=== PATIENT | female | born 1955 | race Caucasian/White ===

== ENCOUNTER 2021-04-18 04:19 | Emergency (ER) | payer BC ==
[2021-04-18 04:30] VITALS: TEMP 98.2
[2021-04-18] MEDS ORDERED: METOCLOPRAMIDE 5 MG/ML 2 ML VIAL IVP STA (05:09)
[2021-04-18] MEDS ORDERED: MORPHINE SULFATE 4 MG/ML SYRINGE IV STA (05:09)
[2021-04-18] MEDS ORDERED: LABETALOL 5 MG/ML VIAL MDV IVP STA (05:13)
--- NOTE | 2021-04-18 05:19 | XR ---
EXAMINATION TYPE: XR chest 2V DATE OF EXAM: 04/18/2021 COMPARISON: NONE HISTORY: Cough TECHNIQUE: 2 views FINDINGS: There is coarsening of the interstitial markings. Heart appears slightly enlarged. There is no heart failure. There are no hilar masses. Bony thorax is intact. IMPRESSION: Mild pulmonary interstitial pneumonia. No heart failure.
[2021-04-18 05:35] LABS: Anisocytosis Slight; Basophils # (A) 0.1 k/uL (0-0.2); Basophils % (A) 0 %; Eosinophils # (A) 0.7 k/uL (0-0.7); Eosinophils % (A) 5 %; HCT 44.2 % (34.0-46.0); HGB 14.6 gm/dL (11.4-16.0); Lymphocytes # (A) 2.7 k/uL (1.0-4.8); Lymphocytes % (A) 18 %; Mean Platelet Volume 6.8; Monocytes # (A) 0.6 k/uL (0-1.0); Monocytes % (A) 4 %; Neutrophils # (A) 10.4 k/uL (1.3-7.7); Neutrophils % (A) 71 %; Platelet Count 343 k/uL (150-450); RBC 4.86 m/uL (3.80-5.40); RDW 16.8 % (11.5-15.5); WBC 14.6 k/uL (3.8-10.6)
[2021-04-18 05:46] LABS: Calcium 8.7 mg/dL (8.4-10.2); Potassium 4.3 mmol/L (3.5-5.1)
--- NOTE | 2021-04-18 06:07 | ED ---
Headache HPI - General Mode of arrival: EMS - History of Present Illness MD Complaint: headache -: hour(s) Onset Description: gradual Location: frontal Severity: severe Quality: aching Consistency: constant Improves With: nothing Worsens With: light Context: occurred at rest Associated Symptoms: photophobia, sensitivity to sound Other Symptoms: cough, malaise Treatments Prior to Arrival: none <Antoine Fortune - Last Filed: 04/18/21 07:38> <Zay Landaverde - Last Filed: 04/18/21 07:57> - General Chief Complaint: Headache Stated Complaint: headache Time Seen by Provider: 04/18/21 04:33 - History of Present Illness Initial Comments: This patient is a 66-year-old woman who presents to be evaluated medically for headache. She states she has had a constellation symptoms dating back a few days. She has had congestion, sinus pressure, fever and chills, myalgias, and a little bit of cough. The patient developed worsening pain from about 1 this morning. The patient had been seen 3 days ago with cold and test that was negative. She was told she probably has viral syndrome. (Antoine Fortune) - Related Data Allergies Allergy/AdvReac Type Severity Reaction Status Date / Time Penicillins AdvReac Rash/Hives Verified 04/18/21 05:12 Review of Systems ROS Other: All systems not noted in ROS Statement are negative. Constitutional: Denies: fever, chills, weakness Eyes: Denies: eye pain, vision change ENT: Reports: congestion. Denies: ear pain Respiratory: Reports: cough. Denies: dyspnea, wheezes Cardiovascular: Denies: chest pain, syncope Gastrointestinal: Reports: nausea. Denies: abdominal pain, vomiting, diarrhea Musculoskeletal: Denies: back pain Skin: Denies: rash Neurological: Denies: headache, weakness, numbness <Antoine Fortune - Last Filed: 04/18/21 07:38> ROS Other: All systems not noted in ROS Statement are negative. <Zay Landaverde - Last Filed: 04/18/21 07:57> ROS Statement: Those systems with pertinent positive or pertinent negative responses have been documented in the HPI. Past Medical History Past Medical History: Diabetes Mellitus, Hypertension History of Any Multi-Drug Resistant Organisms: None Reported Additional Past Surgical History / Comment(s): stent placed 03/11/21 Smoking Status: Former smoker Past Alcohol Use History: None Reported <Antoine Fortune - Last Filed: 04/18/21 07:38> General Exam General appearance: alert, in no apparent distress Head exam: Present: atraumatic, normocephalic Eye exam: Present: normal appearance, PERRL, EOMI. Absent: scleral icterus, conjunctival injection Neck exam: Present: normal inspection, full ROM. Absent: meningismus Respiratory exam: Present: normal lung sounds bilaterally. Absent: respiratory distress, wheezes, rales, rhonchi, stridor Cardiovascular Exam: Present: regular rate, normal rhythm, normal heart sounds. Absent: systolic murmur, diastolic murmur, rubs, gallop GI/Abdominal exam: Present: soft. Absent: distended, tenderness, guarding, rebound, rigid, mass Extremities exam: Present: normal inspection, normal capillary refill Back exam: Present: normal inspection Neurological exam: Present: alert, oriented X3, CN II-XII intact. Absent: motor sensory deficit Skin exam: Present: warm, dry, intact, normal color. Absent: rash <Antoine Fortune - Last Filed: 04/18/21 07:38> Course Vital Signs 04/18/21 04/18/21 04/18/21 04:23 05:20 05:55 Temperature 98.2 F Pulse Rate 64 52 L 62 Respiratory 20 22 20 Rate Blood Pressure 216/111 198/131 145/85 O2 Sat by Pulse 97 96 96 Oximetry 04/18/21 07:37 Temperature Pulse Rate 72 Respiratory 16 Rate Blood Pressure 148/64 O2 Sat by Pulse 96 Oximetry Medical Decision Making - Lab Data Result diagrams: 04/18/21 05:28 04/18/21 05:28 - EKG Data -: EKG Interpreted by Ct EKG shows normal: sinus rhythm (With sinus arrhythmia), axis (Normal), intervals (Normal), QRS complexes (Normal), ST-T waves (Normal) Rate: bradycardia (Rate 49 bpm) <Antoine Fortune - Last Filed: 04/18/21 07:38> - Lab Data Result diagrams: 04/18/21 05:28 04/18/21 05:28 <Zay Landaverde - Last Filed: 04/18/21 07:57> - Medical Decision Making Patient is signed out to me by previous shift physician, Dr. Doty. Briefly, patient is 66-year-old female presents to the emergency department for headache. Patient states her headache started at 1 AM. She was able to get a computed tomography scan of her brain at 725. Patient evaluated at the bedside at 7:50 AM. X-ray C initially evaluated patient. She had blood work performed. Her CBC metabolic panel coronavirus tests are all negative. One week ago she was seen at another outside facility for the same complaint. She was so that she has a viral URI infection. She still has symptoms of sinus pressure and productive cough. She then follow-up with her primary care physician who told her to the same thing. She states she is here in emergency department today is of her headache and persistent symptoms. Treated with blood pressure medications, headache medications. Plan jeannena was to follow-up up with pending CT imaging of the head. Computed tomography scan of the brain is unremarkable. Patient reevaluated at the bedside at 7:50 AM found with stable medical condition. Patient's vitals are now normal. She is well-appearing and reports improvement of her headache. Patient states she lives at home and has no issues taking care of herself. She lives with , daughter and grandchildren. She has newly established care with physicians part of the [facility]. Patient is advised to follow-up with primary care doctor. Patient will be disc harged. Patient is agreeable to plan. (Zay Landaverde) - Lab Data Lab Results 04/18/21 04/18/21 04/18/21 Range/Units 05:28 05:28 05:28 WBC 14.6 H (3.8-10.6) k/uL RBC 4.86 (3.80-5.40) m/uL Hgb 14.6 (11.4-16.0) gm/dL Hct 44.2 (34.0-46.0) % MCV 91.0 (80.0-100.0) fL MCH 30.0 (25.0-35.0) pg MCHC 33.0 (31.0-37.0) g/dL RDW 16.8 H (11.5-15.5) % Plt Count 343 (150-450) k/uL MPV 6.8 Neutrophils % 71 % Lymphocytes % 18 % Monocytes % 4 % Eosinophils % 5 % Basophils % 0 % Neutrophils # 10.4 H (1.3-7.7) k/uL Lymphocytes # 2.7 (1.0-4.8) k/uL Monocytes # 0.6 (0-1.0) k/uL Eosinophils # 0.7 (0-0.7) k/uL Basophils # 0.1 (0-0.2) k/uL Anisocytosis Slight Sodium 138 (137-145) mmol/L Potassium 4.3 (3.5-5.1) mmol/L Chloride 108 H (98-107) mmol/L Carbon Dioxide 22 (22-30) mmol/L Anion Gap 8 mmol/L BUN 21 H (7-17) mg/dL Creatinine 1.09 H (0.52-1.04) mg/dL Est GFR (CKD-EPI)AfAm 61 (>60 ml/min/1.73 sqM) Est GFR (CKD-EPI)NonAf 53 (>60 ml/min/1.73 sqM) Glucose 142 H (74-99) mg/dL Calcium 8.7 (8.4-10.2) mg/dL Coronavirus (PCR) Not Detected (Not Detectd) Disposition <Antoine Fortune - Last Filed: 04/18/21 07:38> Is patient prescribed a controlled substance at d/c from ED?: No <Zay Landaverde - Last Filed: 04/18/21 07:57> Clinical Impression: Headache Disposition: HOME SELF-CARE Condition: Fair Instructions (If sedation given, give patient instructions): Acute Headache (ED), Upper Respiratory Infection (ED) Additional Instructions: follow up with your PCP Dr. Lau
[2021-04-18] MEDS ORDERED: cefTRIAXone IN SWFI 1,000 MG/10 ML SYRINGE IVP STA (06:40)
[2021-04-18] MEDS ORDERED: AZITHROMYCIN 500 MG TAB PO STA (06:40)
--- NOTE | 2021-04-18 07:29 | CT ---
EXAMINATION TYPE: CT brain wo con DATE OF EXAM: 04/18/2021 COMPARISON: None HISTORY: 66-year-old female Headache TECHNIQUE: Examination was done in axial plane without intravenous contrast. Coronal and sagittal r econstructions performed. CT DLP: 1082.4 mGycm Automated exposure control for dose reduction was used. FINDINGS: There is no evidence of acute intracranial hemorrhage, acute ischemic changes, mass, mass-effect, or extra-axial fluid collection. There is no effacement of cerebral sulci or basal subarachnoid cister ns. There is no hydrocephalus. There is no midline shift. Fay-white matter distinction is preserv ed. Mild age-related cerebral cortical volume loss. Mild patchy subcortical white matter hypodensities re lating to chronic small vessel ischemic disease. Benign right-sided basal ganglionic calcifications. Paranasal sinuses and mastoid air cells are pneumatized. Orbits and globes are intact. IMPRESSION: No acute intracranial abnormality seen. Mild burden of chronic small vessel ischemic disease.
[2021-04-18 07:40] VITALS: BP 148/64; PULSE 72; RESP 16
[2021-04-18] MEDS ORDERED: ACET/COD 300 MG/30 MG STARTER PACK 6 TAB BTL PO STA (07:54)
== END 2021-04-18 08:00 | disposition home or self-care (01) ==
LOC: EC 04:19
DX: R51.9 Headache, unspecified (principal); H53.149 Visual discomfort, unspecified; R05.9 Cough, unspecified; R53.81 Other malaise; Z20.822 Contact with and (suspected) exposure to COVID-19
CPT/HCPCS: 36415; 93005; 80048; 85025; 87635; 71046; 70450; 99285; 96374; 96375; J2270; J2765; J0696